=== PATIENT | female | born 1970 | race Caucasian/White ===

== ENCOUNTER 2017-03-16 18:54 | Emergency (ER) | payer BC ==
[2017-03-16 19:38] VITALS: BP 140/60
--- NOTE | 2017-03-16 19:51 | UC ---
Throat Pain/Nasal Gage HPI - History of Current Complaint Chief Complaint: UCRespiratory Stated Complaint: SORE THROAT Hx Obtained From: Patient Hx Last Menstrual Period: DOES NOT HAVE REG PERIODS HAS THE MIRENA IUD ?: No Onset/Duration: Sudden Onset - today with sore throat and fever, Worse Since - this morning. Severity: Moderate Cough: Nonproductive Associated Signs & Symptoms: Positive: Dysphagia, Hoarseness, Fever. Negative: Wheezing, Sinus Discomfort Related History: Seasonal Allergies - Epiglottits Risk Factors Epiglottis Risk Factors: Negative - Allergies/Home Medications Allergies/Adverse Reactions: Allergies Allergy/AdvReac Type Severity Reaction Status Date / Time Morphine Allergy Hallucinati Verified 03/16/17 19:27 ons Lactose Intolerance (GI) AdvReac GI Upset Verified 03/16/17 19:27 Milk Protein Extract AdvReac GI Upset Verified 03/16/17 19:27 environment Allergy Difficulty Uncoded 03/16/17 19:27 Breathing Home Medications: Home Medications Budesonide/Formote 80/4.5(NF) [Symbicort 80/4.5 (NF)] 1 puff INH DAILY 03/16/17 [History Confirmed 03/16/17] Cyanocobalamin TAB* [Vitamin B12 TAB*] 500 mcg PO DAILY 03/16/17 [History Confirmed 03/16/17] Loratadine [Claritin 10 MG CAP] 10 mg PO DAILY 03/16/17 [History Confirmed 03/16] PMH/Surg Hx/FS Hx/Imm Hx Respiratory History: Asthma GI/ History: Gastroesophageal Reflux Psychological History: Anxiety - Surgical History Surgical History: Yes Surgery Procedure, Year, and Place: Right Shoulder Surgery - Family History Known Family History: Positive: Diabetes Negative: Cardiac Disease, Hypertension - Social History Occupation: Employed Full-time Lives: With Family Alcohol Use: Occasionally Substance Use Type: None Smoking Status (MU): Former Smoker Type: Cigarettes When Did the Patient Quit Smoking/Using Tobacco: 2013 Review of Systems Constitutional: Fever ENT: Sore Throat Respiratory: Cough All Other Systems Reviewed And Are Negative: Yes Physical Exam Triage Information Reviewed: Yes Appearance: No Pain Distress, Well-Nourished, Ill-Appearing - mild Vital Signs: Initial Vital Signs Temp 98.5 F 03/16/17 19:33 Pulse 81 03/16/17 19:33 Resp 18 03/16/17 19:33 BP 140/60 03/16/17 19:33 Pulse Ox 99 03/16/17 19:33 Vital Signs Reviewed: Yes Eyes: Positive: Conjunctiva Clear ENT: Positive: Nasal congestion, TMs normal Neck: Positive: Supple, No Lymphadenopathy Respiratory: Positive: Lungs clear, Wheezing - Expiratory wheezes with coughing. Cardiovascular Exam: Normal Musculoskeletal Exam: Normal Neurological Exam: Normal Psychological Exam: Normal Skin Exam: Normal Throat Pain/Nasal Course/Dx - Differential Dx/Diagnosis Differential Diagnosis/HQI/PQRI: Otitis Media, Pharyngitis, Sinusitis, URI Provider Diagnoses: Acute URI. Acute bronchospasm. Discharge - Discharge Plan Condition: Stable Disposition: HOME Prescriptions: predniSONE TAB* [Deltasone TAB*] 20 mg PO DAILY #18 tab Patient Education Materials: Upper Respiratory Infection (ED), Bronchospasm (ED ), Prednisone (By mouth) Additional Instructions: MILI SINUS RINSE: CHECK OUT AT [place] Saline nasal wash helps with mucous, allergies and congestion. It can be used up to twice a day or only as needed. Use lukewarm tap water. It does not have to be sterilized or distilled water. Do 1/3 on each side and snort out of both nostrils. Repeat the process with 1/6 of the bottle on each side with snorting in between to finish the solution in the bottle
== END 2017-03-16 20:07 | disposition home or self-care (01) ==
LOC: UCCORT 18:54
DX: J06.9 Acute upper respiratory infection, unspecified (principal); Z87.891 Personal history of nicotine dependence; J98.01 Acute bronchospasm
CPT/HCPCS: 87651; 99212; G0463

== ENCOUNTER 2018-11-26 15:36 | Emergency (ER) | payer BC, OTHER ==
[2018-11-26 17:05] VITALS: BP 124/65
--- NOTE | 2018-11-26 18:21 | UC ---
Hand/Wrist HPI - HPI Summary HPI Summary: Pt presents with c/o right index finger pain. Pt reports that she was trying to close her car window manually and hit right index finger against ceiling of car and artificial nail and natural nail bent back wards at 90 degree angle. Pt states she pushed nail back to nail bed. Wound is not actively bleeding. - History Of Current Complaint Chief Complaint: UCUpperExtremity Stated Complaint: RIGHT INDEX FINGER NAIL CONCERN Time Seen by Provider: 11/26/18 17:11 Hx Obtained From: Patient Hx Last Menstrual Period: has mirena ?: No Onset/Duration: Sudden Onset, Still Present Severity Initially: Severe Severity Currently: Moderate Pain Intensity: 8 Pain Scale Used: 0-10 Numeric Character Of Pain: Dull, Aching, Throbbing Aggravating Factor(s): Movement Alleviating Factor(s): Rest Associated Signs And Symptoms: Positive: Swelling, Other - nail lifted off nail bed - Risk Factors Compartment Syndrome Risk Factors: Pain - Allergies/Home Medications Allergies/Adverse Reactions: Allergies Allergy/AdvReac Type Severity Reaction Status Date / Time morphine AdvReac Hallucinati Verified 11/26/18 17:05 ons PMH/Surg Hx/FS Hx/Imm Hx Previously Healthy: Yes - Surgical History Surgical History: Yes Surgery Procedure, Year, and Place: Right Shoulder Surgery - Family History Known Family History: Positive: Diabetes Negative: Cardiac Disease, Hypertension - Social History Occupation: Employed Full-time Lives: With Family Alcohol Use: Rare Substance Use Type: None Smoking Status (MU): Light Every Day Tobacco Smoker Type: Cigarettes Amount Used/How Often: 5-7 cigs daily Have You Smoked in the Last Year: No When Did the Patient Quit Smoking/Using Tobacco: 2013 - Immunization History Vaccination Up to Date: Yes Review of Systems All Other Systems Reviewed And Are Negative: Yes Constitutional: Positive: Negative Skin: Positive: Other - right index nail lifted off nail bed Eyes: Positive: Negative ENT: Positive: Negative Respiratory: Positive: Negative Cardiovascular: Positive: Negative Gastrointestinal: Positive: Negative Genitourinary: Positive: Negative Motor: Positive: Decreased ROM - pain wiht ROM right distal index finger Neurovascular: Positive: Negative Musculoskeletal: Positive: Negative, Edema, Myalgia - right index finger, distal Neurological: Positive: Negative Psychological: Positive: Negative Is Patient Immunocompromised?: No Physical Exam Triage Information Reviewed: Yes Appearance: Pain Distress - with examination of injured finger Vital Signs: Initial Vital Signs Temp 98.1 F 11/26/18 16:57 Pulse 85 11/26/18 16:57 Resp 17 11/26/18 16:57 BP 124/65 11/26/18 16:57 Pulse Ox 100 11/26/18 16:57 Vital Signs Reviewed: Yes Eye Exam: Normal ENT: Positive: Hearing grossly normal Dental Exam: Normal Neck exam: Normal Respiratory: Positive: No respiratory distress Musculoskeletal Exam: Normal Musculoskeletal: Positive: Strength Intact, Other: - pain at distal right index finger, at fingernail, fingernail intact. c/o tenderness with examination. Neurological Exam: Normal Psychological Exam: Normal Skin Exam: Other - right index finger nail attached to nail bed, no active bleeding. Hand/Wrist Course/Dx - Differential Dx/Diagnosis Differential Diagnosis/HQI/PQRI: Infection, Sprain, Subungual Hematoma Provider Diagnosis: Contusion of right index finger with damage to nail Discharge - Sign-Out/Discharge Documenting (check all that apply): Patient Departure All imaging exams completed and their final reports reviewed: No Studies - Discharge Plan Condition: Stable Disposition: HOME Prescriptions: Cephalexin CAP* [Keflex 500 CAP*] 500 mg PO Q12H #10 cap Patient Education Materials: Nail Avulsion (ED) Referrals: Stephany Cadena [Primary Care Provider] - If Needed Additional Instructions: Please change your dressing every twelves hours or more frequently if soiled. - Billing Disposition and Condition Condition: STABLE Disposition: Home
== END 2018-11-26 17:42 | disposition home or self-care (01) ==
LOC: UCCORT 15:36
DX: S60.121A Contusion of right index finger with damage to nail, initial encounter (principal); F17.210 Nicotine dependence, cigarettes, uncomplicated; Z88.5 Allergy status to narcotic agent; W22.8XXA Striking against or struck by other objects, initial encounter; Y92.9 Unspecified place or not applicable
CPT/HCPCS: 99213; G0463

== ENCOUNTER 2018-12-06 08:52 | Emergency (ER) | payer OTHER ==
[2018-12-06 09:12] VITALS: BP 113/50
--- NOTE | 2018-12-06 09:28 | UC ---
Hand/Wrist HPI - HPI Summary HPI Summary: right index finger pain x 10 days injury to right index finger 10 days ago as she was opening her window , avulsion of the fingernail . cont. to have pain and swelling of the finger cannot flex DIP - History Of Current Complaint Chief Complaint: UCUpperExtremity Stated Complaint: SWOLLEN, SORE R POINTER FINGER 11/26 WC RECHECK Time Seen by Provider: 12/06/18 09:04 Hx Obtained From: Patient Hx Last Menstrual Period: has mirena ?: No Onset/Duration: Sudden Onset, Lasting Days - 10, Still Present Severity Initially: Moderate Severity Currently: Moderate Pain Intensity: 0 Character Of Pain: Aching, Throbbing, Stiffness Aggravating Factor(s): Movement, Flexion - cannot flex from DIP joint Alleviating Factor(s): Nothing Associated Signs And Symptoms: Positive: Swelling, Weakness. Negative: Redness , Bruising - Allergies/Home Medications Allergies/Adverse Reactions: Allergies Allergy/AdvReac Type Severity Reaction Status Date / Time morphine AdvReac Hallucinati Verified 12/06/18 09:03 ons PMH/Surg Hx/FS Hx/Imm Hx Respiratory History: Asthma GI/ History: Gastroesophageal Reflux Psychological History: Anxiety - Surgical History Surgical History: Yes Surgery Procedure, Year, and Place: Right Shoulder Surgery - Family History Known Family History: Positive: Diabetes Negative: Cardiac Disease, Hypertension - Social History Alcohol Use: Rare Substance Use Type: None Smoking Status (MU): Light Every Day Tobacco Smoker Type: Cigarettes Amount Used/How Often: 5-7 cigs daily Have You Smoked in the Last Year: No When Did the Patient Quit Smoking/Using Tobacco: 2013 - Immunization History Vaccination Up to Date: Yes Review of Systems All Other Systems Reviewed And Are Negative: Yes Constitutional: Positive: Negative Skin: Positive: Negative Eyes: Positive: Negative ENT: Positive: Negative Respiratory: Positive: Negative Is Patient Immunocompromised?: No Physical Exam Triage Information Reviewed: Yes Appearance: Well-Appearing, No Pain Distress, Well-Nourished Vital Signs: Initial Vital Signs Temp 98.1 F 12/06/18 09:06 Pulse 74 12/06/18 09:06 Resp 17 12/06/18 09:06 BP 113/50 12/06/18 09:06 Pulse Ox 98 12/06/18 09:06 Vital Signs Reviewed: Yes Eye Exam: Normal Eyes: Positive: Conjunctiva Clear ENT: Positive: Normal ENT inspection, Hearing grossly normal, Pharynx normal Neck: Positive: Supple, Nontender, No Lymphadenopathy Respiratory: Positive: Chest non-tender, Lungs clear, Normal breath sounds Cardiovascular: Positive: RRR, No Murmur, Pulses Normal Musculoskeletal: Positive: Other: - right index finger : + swelling, tender to touch, limited ROM on Flexion from DIP Diagnostics - Radiology No standard instances Summary of Radiographic Findings: right index finger xray : no fracture noted Hand/Wrist Course/Dx - Differential Dx/Diagnosis Provider Diagnosis: Injury of tendon of finger Provider Diagnosis: (Ruled Out): Other injury of flexor muscle, fascia and tendon of right index finger at forearm level, initial encounter Discharge - Sign-Out/Discharge Documenting (check all that apply): Patient Departure All imaging exams completed and their final reports reviewed: Yes - Discharge Plan Condition: Stable Disposition: HOME Patient Education Materials: Tendon Rupture (ED) Referrals: Stephany Cadena [Primary Care Provider] - Miguel Adams MD [Medical Doctor] - As Soon As Possible Additional Instructions: concern about [place] finger right index finger DIP joint referral to ortho rufus for evaluation and tx - Billing Disposition and Condition Condition: STABLE Disposition: Home
== END 2018-12-06 09:59 | disposition home or self-care (01) ==
LOC: UCCORT 08:52
DX: S56.101A Unspecified injury of flexor muscle, fascia and tendon of right index finger at forearm level, initial encounter (principal); S61.300A Unspecified open wound of right index finger with damage to nail, initial encounter; J45.909 Unspecified asthma, uncomplicated; F17.210 Nicotine dependence, cigarettes, uncomplicated; Z88.5 Allergy status to narcotic agent; X58.XXXA Exposure to other specified factors, initial encounter; Y93.89 Activity, other specified; Y92.9 Unspecified place or not applicable
CPT/HCPCS: 73140; 99211; G0463